=== PATIENT | female | born 1990 | race American Indian/Alaskan Native ===

== ENCOUNTER 2021-02-23 12:28 | Emergency (ER) | payer OTHER ==
[2021-02-23 13:01] VITALS: BP 121/68
[2021-02-23] MEDS ORDERED: LIDOCAINE (1%) 10 MG/1 ML VIAL 20 ML MDV INFILTRATI ONE (13:57)
[2021-02-23] MEDS ORDERED: MORPHINE 4 MG/1 ML INJ IM ONE (13:57)
[2021-02-23] MEDS ORDERED: ONDANSETRON 4 MG/2 ML INJ IM ONE (13:57)
[2021-02-23] MEDS ORDERED: TETANUS,DIPH,PERTUSS(ACELL) VACCINE 0.5 ML SYRINGE IM ONE (14:00)
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
[2021-02-23] MEDS ORDERED: SODIUM CHLORIDE IRRI 500 ML 500 ML IR ONE (14:16)
[2021-02-23] MEDS ORDERED: SODIUM CHLORIDE 0.9% IRR 500 ML BOTTLE IR ONE (15:00)
[2021-02-23] MEDS ORDERED: LIDOCAINE-MPF (1%) 10 MG/1 ML VIAL 5 ML ONE (15:50)
== END 2021-02-23 16:37 | disposition home or self-care (01) ==
LOC: ED 12:28
DX: S71.112A Laceration without foreign body, left thigh, initial encounter (principal); S61.211A Laceration without foreign body of left index finger without damage to nail, initial encounter; F17.200 Nicotine dependence, unspecified, uncomplicated; F12.90 Cannabis use, unspecified, uncomplicated; Z79.899 Other long term (current) drug therapy; W26.0XXA Contact with knife, initial encounter; Y93.89 Activity, other specified; Y92.009 Unspecified place in unspecified non-institutional (private) residence as the place of occurrence of the external cause; Y99.8 Other external cause status
CPT/HCPCS: 12004; 90471; 90715; 96372; 99282; J2270; J2405

== ENCOUNTER 2021-11-06 15:07 | Emergency (ER) | payer SELFPAY ==
[2021-11-06] MEDS ORDERED: LORazepam 2 MG/ML VIAL IM STA ×2 (15:54)
[2021-11-06] MEDS ORDERED: KETOROLAC 30 MG/1 ML INJ IM ONE (15:54)
[2021-11-06] MEDS ORDERED: ACETAMINOPHEN 325 MG TAB PO ONE (15:54)
--- NOTE | 2021-11-06 15:56 | Emergency Department Report ---
ED General Adult HPI - General Chief complaint: Neck Pain/Injury Stated complaint: Muscular neck pain Time Seen by Provider: 11/06/21 15:35 Source: patient, RN notes reviewed, old records reviewed Mode of arrival: Ambulatory Limitations: No Limitations - History of Present Illness Initial comments: The patient is a 31-year-old female who states that she is not , presenting to the ER today with complaints of muscular trapezius pain for about 3 to 4 days. Denies additional injuries or complaints. Minimal relief with Motrin [id number]. Pain does not radiate anywhere. Increases with palpation and range of motion. Decreased with rest. No fever, no sore throat. No significant headache. No irritative obstructive urinary symptoms. Denies IV drug use. No recent motor vehicle accident, fender white, or chiropractic manipulation. -: days(s) Location: neck Radiation: non-radiation Severity scale (0 -10): 10 Consistency: constant Improves with: rest Worsens with: movement Associated Symptoms: denies other symptoms - Related Data Previous Rx's Medication Instructions Recorded Last Taken Type Ciprofloxacin HCl [Ciprofloxacin 500 mg PO Q12HR #14 tab 10/21/15 Unknown Rx TAB] cephALEXin [Keflex] 500 mg PO Q12HR 10 Days #20 cap 02/23/21 Unknown Rx Acetaminophen [Non-Aspirin Extra 650 mg PO Q6HR PRN #30 tablet 11/06/21 Unknown Rx Strength] Ibuprofen [Motrin] 600 mg PO Q8H PRN #30 tablet 11/06/21 Unknown Rx Allergies Allergy/AdvReac Type Severity Reaction Status Date / Time insect bites Allergy Mild Anaphylaxis Uncoded 11/06/21 16:14 ED Review of Systems ROS: Stated complaint: CANT MOVE NECK Other details as noted in HPI Comment: All other systems reviewed and negative Musculoskeletal: myalgia Neurological: denies: numbness, paresthesias Psychiatric: anxiety ED Past Medical Hx - Social History Smoking Status: Current Every Day Smoker Substance Use Type: Alcohol, Marijuana - Medications Home Medications: Home Medications Medication Instructions Recorded Confirmed Last Taken Type Ciprofloxacin HCl [Ciprofloxacin 500 mg PO Q12HR #14 tab 10/21/15 Unknown Rx TAB] cephALEXin [Keflex] 500 mg PO Q12HR 10 Days #20 cap 02/23/21 Unknown Rx Acetaminophen [Non-Aspirin Extra 650 mg PO Q6HR PRN #30 tablet 11/06/21 Unknown Rx Strength] Ibuprofen [Motrin] 600 mg PO Q8H PRN #30 tablet 11/06/21 Unknown Rx ED Physical Exam - General Limitations: No Limitations General appearance: alert, anxious, in distress, obese - Head Head exam: Present: atraumatic, normocephalic - Eye Eye exam: Present: normal appearance, PERRL, EOMI. Absent: nystagmus - ENT ENT exam: Present: normal exam, normal orophraynx, mucous membranes moist, normal external ear exam - Neck Neck exam: Present: normal inspection, tenderness (There is reproducible bilateral trapezius muscular tenderness). Absent: meningismus - Respiratory Respiratory exam: Present: normal lung sounds bilaterally. Absent: respiratory distress, wheezes, rales, rhonchi, stridor, decreased breath sounds - Cardiovascular Cardiovascular Exam: Present: normal rhythm, tachycardia, normal heart sounds. Absent: bradycardia, irregular rhythm, systolic murmur, diastolic murmur, rubs, gallop - GI/Abdominal GI/Abdominal exam: Present: soft, normal bowel sounds. Absent: distended, tenderness, guarding, rebound, rigid - Extremities Exam Extremities exam: Present: normal inspection, full ROM, other (2+ pulses noted in the bilateral upper and lower extremities. There is no palpable cord. negative Homans sign. Muscular compartments are soft. The pelvis is stable.). Absent: pedal edema, calf tenderness - Back Exam Back exam: Present: normal inspection, full ROM, tenderness (There is muscular tenderness in the bilateral trapezius), muscle spasm, paraspinal tenderness. Absent: CVA tenderness (R), CVA tenderness (L), vertebral tenderness - Neurological Exam Neurological exam: Present: alert, oriented X3, normal gait, reflexes normal, other (No facial droop. Tongue midline. Extraocular movements intact bilaterally. Facial sensation intact to light touch in V1, V2, V3 distribution bilaterally. 5 and a 5 strength in 4 extremities. Sensation intact to light touch in 4 extremities.). Absent: motor sensory deficit - Psychiatric Psychiatric exam: Present: anxious - Skin Skin exam: Present: warm, dry, intact, normal color. Absent: rash ED Course Vital Signs 11/06/21 15:23 Temperature 99.1 F Pulse Rate 120 H Respiratory 18 Rate Blood Pressure 138/83 [Right] O2 Sat by Pulse 98 Oximetry - Reevaluation(s) Reevaluation #1: 11/06/21 16:03 Differential diagnosis, include but not limited to: Torticollis, anxiety, trapezius sprain/strain Assessment and plan: 31-year-old female, who was afebrile, with tachycardic, but denies IV drug use, fevers and chills, presenting to the ER with a complaint of muscular bilateral trapezius pain, both likely torticollis. Patient is clinically intact with a GCS of 15, no neurovascular deficits, no sore throat, unremarkable pharyngeal examination. We will treat her with Tylenol, Toradol, Ativan, and provide trigger point injection with bupivacaine. We will reassess. I discussed this plan of care with the patient. She is agreeable. Patient denies the possibility of , this is unlikely to be B CVI as she is not had any recent trauma, denies chiropractic manipulation. Reevaluation #2: 11/06/21 17:14 The patient is reexamined. Heart rate 63 bpm. Temperature 97 degrees. Range of motion markedly improved and neck with turning left and right, looking up and down. No meningeal signs. Patient appears calm and collected at this time. She tolerated trigger point injection well, please see procedure note. She is suitable for discharge with outpatient follow-up. Reports that she will have somebody come by and pick her up. Return precautions reviewed - Nerve Block Consent Obtained: verbal consent Time Out Performed: Yes Local Anesthetic Used: Marcaine 0.25% Amount of anesthesia used: 3 Side: left, right Procedure Successful: Yes Complications: none Patient Tolerated Procedure: well Additional Comments: Explained risks, benefits and alternatives of trigger point injection to the patient, and she provides verbal consent. The bilateral trapezii are cleansed with typical aseptic technique, and using a 23-gauge needle, 1.5 cc of 0.25% bupivacaine are injected into the belly of the left and right trapezius respectively, at points of maximal tenderness. Patient tolerated this procedure well, and endorses no significant complications. The sites were then dressed by the care team, and patient will be discharged with outpatient follow-up. Please note that there is no redness, pus, streaking, crepitus or fluctuance noted on either muscle belly ED Medical Decision Making - Lab Data Vital Signs 11/06/21 15:23 Temperature 99.1 F Pulse Rate 120 H Respiratory 18 Rate Blood Pressure 138/83 [Right] O2 Sat by Pulse 98 Oximetry Critical care attestation.: If time is entered above; I have spent that time in minutes in the direct care of this critically ill patient, excluding procedure time. ED Disposition Clinical Impression: Muscle pain, cervical Disposition: HOME / SELF CARE / HOMELESS Is pt being admited?: No Does the pt Need Aspirin: No Condition: Good Instructions: Neck Exercises Additional Instructions: As we discussed, patient most likely has trapezius spasm/torticollis. Alternate ice packs and heat packs as needed for physical pain relief. Take the pain medications as needed and directed. Follow-up with a primary care doctor, pain specialist, health spa manager, or investigation specialist within the next week. Patient may require rehabilitation and physical therapy. The patient should contact any of the listed physicians to arrange outpatient follow-up for physical therapy and rehabilitation. Rest and avoid heavy lifting. Participate in light lifting and physical activity as tolerated, until cleared to resume heavy duty lifting by your primary care doctor or one of the outside physicians listed. Please return to the emergency room right away with new pain, worsened pain, migration of pain, projectile vomiting, change in mental status, confusion, inability tolerate liquid feeds, new, worsened or different symptoms not present on the initial emergency room evaluation Prescriptions: Ibuprofen [Motrin] 600 mg PO Q8H PRN #30 tablet PRN Reason: Pain Acetaminophen [Non-Aspirin Extra Strength] 650 mg PO Q6HR PRN #30 tablet PRN Reason: Pain , Severe (7-10) Referrals: [facility] [Provider Group] - 3-5 Days [facility] [Provider Group] - 3-5 Days Forms: Work/School Release Form(ED)
[2021-11-06] MEDS ORDERED: BUPIVACAINE/PF (0.25%) 2.5 MG/ML 30 ML VIAL INFILTRATI ONE (16:03)
[2021-11-06 17:43] VITALS: BP 121/75
== END 2021-11-06 17:43 | disposition home or self-care (01) ==
LOC: ED 15:07
DX: M54.2 Cervicalgia (principal); F17.200 Nicotine dependence, unspecified, uncomplicated; F10.20 Alcohol dependence, uncomplicated; F12.90 Cannabis use, unspecified, uncomplicated
CPT/HCPCS: 96372; 99282; J1885; J2060; J3490